=== PATIENT | male | born 1975 | race Caucasian/White ===

== ENCOUNTER 2018-03-12 14:13 | Emergency (ER) | payer SELFPAY ==
[2018-03-12 14:37] VITALS: BP 161/98; PULSE 69; RESP 18; TEMP 98.8; O2SAT 100
--- NOTE | 2018-03-12 15:23 | C.PDOC ---
History Of Present Illness 42 y/o male presents to the ED with s/p right eye injury. 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 He tried to irrigate the eye immediately. However, he reports waking up the next day with blurriness associated with pain and redness. Patient claims the pain is a 3/10 when he blinks. He claims to have poor vision. Denies headache, neck pain, nausea, and vomiting. PMD: none provided Time Seen by Provider: 03/12/18 15:20 Chief Complaint (Nursing): Eye Problem History/Exam Limitations: no limitations Onset/Duration Of Symptoms: Days (x4) Current Symptoms Are (Timing): Worse Injury To Eye?: Yes Pain Scale Rating Of: 3 Associated Symptoms: Decreased Vision Recent travel outside of the [place]: No Past Medical History Reviewed: Historical Data, Nursing Documentation, Vital Signs Vital Signs: Last Vital Signs Temp 98.8 F 03/12/18 14:31 Pulse 69 03/12/18 14:31 Resp 18 03/12/18 14:31 BP 161/98 H 03/12/18 14:31 Pulse Ox 100 03/12/18 17:24 - Medical History PMH: No Chronic Diseases Surgical History: No Surg Hx Family History: States: No Known Family Hx - Social History Hx Tobacco Use: No Hx Alcohol Use: No Hx Substance Use: No - Immunization History Hx Tetanus Toxoid Vaccination: No Hx Influenza Vaccination: No Hx Pneumococcal Vaccination: No Review Of Systems Except As Marked, All Systems Reviewed And Found Negative. Eyes: Positive for: Pain, Vision Change, Redness Gastrointestinal: Negative for: Nausea, Vomiting Musculoskeletal: Negative for: Neck Pain Neurological: Negative for: Headache Physical Exam - Physical Exam Appears: Non-toxic, No Acute Distress Skin: Normal Color, Warm, Dry Head: Atraumatic Eye(s): bilateral: Other (20/25 L - 20/200 R, conjunctivitis injected right eye , teary right eye, rust ring in the middle of the cornea), left: Normal Inspection Neurological/Psych: Oriented x3 ED Course And Treatment O2 Sat by Pulse Oximetry: 100 (RA) Pulse Ox Interpretation: Normal Medical Decision Making Medical Decision Making: Time: 14:31 Impression: Metal foreign body to the right eye Plan: * Tobradex Drops * Dr. Gallegos of Ophthalmology for consult Patient is instructed to follow-up with Dr. Gallegos. Patient was sent home with Topromycin drops. Scribe Attestation: Documented by Frannie Regan acting as a scribe for Ashley Stuart PA-C. MD Scribe Attestation: All medical record entries made by the Scribe were at my direction and personally dictated by me. I have reviewed the chart and agree that the record accurately reflects my personal performance of the history, physical exam, medical decision making, and the department course for this patient. I have also personally directed, reviewed, and agree with the discharge instructions and disposition. Disposition Discussed With : Fredo Gallegos Counseled Patient/Family Regarding: Diagnosis, Rx Given - Disposition Referrals: Fredo Gallegos [Staff Provider] - Disposition: HOME/ ROUTINE Disposition Time: 17:20 Condition: STABLE Instructions: Foreign Body in Eye (DC) Forms: [facility] (Gabonese) - POA Present On Arrival: None - Clinical Impression Clinical Impression: Eye foreign body
[2018-03-12] MEDS ORDERED: Fluorescein 1 mg Ophthalmic Strip ONE (17:03)
[2018-03-12] MEDS ORDERED: Tetracaine 0.5% Ophth (OR ONLY) ONE (17:04)
[2018-03-12] MEDS ORDERED: Tobramycin/Dexamethasone (Tobradex) Opth Sol (2.5 ml) OD STA (17:21)
== END 2018-03-12 17:38 | disposition home or self-care (01) ==
LOC: C.ER 14:13
DX: T15.91XA Foreign body on external eye, part unspecified, right eye, initial encounter (principal); X58.XXXA Exposure to other specified factors, initial encounter